=== PATIENT | female | born 1950 | race Caucasian/White ===

== ENCOUNTER 2016-11-04 12:02 | Emergency (ER) | payer OTHER ==
[2016-11-04 12:12] VITALS: TEMP 98.6
--- NOTE | 2016-11-04 13:14 | EDPHY ---
H & P Time Seen by Provider: 11/04/16 13:12 HPI/ROS: CHIEF COMPLAINT: Dyspnea, cough HISTORY OF PRESENT ILLNESS: This patient is a 65 year old female with history of asthma who presents to the Emergency Department for complaints of persistent cough and associated shortness of breath onset 2.5 weeks prior to arrival. She began a course of Levaquin three weeks ago for sinusitis as prescribed by her ENT specialist. She developed a cough 2 weeks ago, which she reports is a typical symptom with her chronic sinusitis. She started taking prednisone approximately one week prior to arrival as prescribed by her CREDIT ADMINISTRATION SPECIALIST. She reports that her dyspnea and cough have only worsened since that time. She had a chest x -ray five days ago suggestive of left lower lobe pneumonia. She started using nebulizer treatments four times daily at that time. Two days prior to arrival, she developed generalized urticaria. She has been taking Benadryl every four hours without improvement to her hives. Today, she reports worsening pruritic urticaria with associated lip swelling, increased dyspnea, and persistent cough. She denies fever or chills or any additional complaints. REVIEW OF SYSTEMS: Constitutional: No fever, no chills Eyes: No visual changes ENT: No sore throat Respiratory: As in HPI Cardiac: No chest pain Gastrointestinal: No nausea, no vomiting, no abdominal pain Genitourinary: No hematuria, no dysuria Musculoskeletal: No leg pain or swelling Skin: +generalized hives Neurological: No headache, no numbness, no weakness Psychiatric: No depression Past Medical/Surgical History: 1. Chronic sinusitis 2. Asthma Social History: Visiting from [place], staying [place] [facility]. Smoking Status: Never smoked Physical Exam: General Appearance: Alert, no distress Eyes: Pupils equal and round, no conjunctival pallor or injection ENT, Mouth: Mucous membranes moist, no visible lip swelling, no oral swelling Neck: Normal inspection Respiratory: Expiratory wheezing Cardiovascular: Regular rate and rhythm Gastrointestinal: Abdomen is soft and non- tender Neurological: A&O, nonfocal, normal gait Skin: Warm and dry, diffuse hives Extremities: Nontender, no pedal edema Psychiatric: Mood and affect normal Constitutional: Initial Vital Signs Temperature (C) 37.0 C 11/04/16 12:08 Heart Rate 108 H 11/04/16 12:08 Respiratory Rate 18 11/04/16 12:08 Blood Pressure 124/77 H 11/04/16 12:08 O2 Sat (%) 89 L 11/04/16 12:08 O2 Delivery Mode Room Air Allergies/Adverse Reactions: levofloxacin [From Levaquin] Allergy (Verified 11/04/16 12:08) Sulfa (Sulfonamide Antibiotics) Allergy (Verified 11/04/16 12:08) Home Medications: Medication Instructions Recorded Albuterol 11/04/16 Prednisolone 11/04/16 predniSONE 1 tab PO DAILY #15 tab 11/04/16 Medical Decision Making - Diagnostics EKG Interpretation: EKG interpreted by me: NSR, rate 97, Diffuse T wave flattening. Impression: borderline EKG Imaging Results: CXR: RLL infiltrate Imaging: I viewed and interpreted images myself ED Course/Re-evaluation: This 65-year-old female presents with persistent cough and shortness of breath presenting 2.5 weeks prior to arrival just after she began a course of Levaquin for sinusitis. She was diagnosed via chest x-ray with left lower lobe pneumonia five days prior to arrival. Today, she presents with diffuse pruritic urticaria. She has history of asthma and reports persistent dyspnea. She has expiratory wheezing on exam. O2 sat was 89% on RA at triage; she had finger nail senegalese on at that time. Since senegalese was removed, O2 sat has been 93% on RA. Will proceed with labs and chest x-ray. IV established. 125mg IV prednisolone administered. 3ml IH DuoNeb administered. Chest x-ray reviewed and shows left lower lobe pneumonia. Pt states rash much improved. 1428: On reevaluation, the patient is feeling much better. Her lungs are now clear to auscultation. O2 sat remains greater than 90% on RA with ambulation and pt is not SOB. She is eager to go home. I discussed with her my recommendation that she begin the course of Zithromax that was prescribed by her CREDIT ADMINISTRATION SPECIALIST (she has these pills at home). Will take anti-histamines OTC and use her home neb tid. She will also be given a new script for prednisone and instructions to use her nebulizer treatment four times daily. She understands these instructions. She will be discharged home in good condition with customary return precautions. Differential Diagnosis: includes though not limited to hypoxia, status asthmaticus, CHF, PE - Data Points Laboratory Results: Laboratory Results 11/04/16 13:23 11/04/16 13:23 Medications Given: Discontinued Medications Albuterol/Ipratropium (Duoneb) 3 ml IH EDNOW ONE Stop: 11/04/16 13:28 Last Admin: 11/04/16 13:56 Dose: 3 ml Methylprednisolone Sodium Succinate (Solu-Medrol) 125 mg IVP EDNOW ONE Stop: 11/04/16 13:28 Last Admin: 11/04/16 13:57 Dose: 125 mg Departure - Departure Disposition: Home, Routine, Self-Care Clinical Impression: Pneumonia Qualifiers: Pneumonia type: due to unspecified organism Laterality: left Lung location: lower lobe of lung Qualified Code(s): J18.1 - Lobar pneumonia, unspecified organism Condition: Good Instructions: Pneumonia (ED) Additional Instructions: 1. Take prednisone as prescribed for your shortness of breath and cough. 2. Take the full course of Zithromax as prescribed to treat your pneumonia. You are allergic to Levaquin. 3. Continue to use your nebulizer treatment at home, four times daily. Take Claritin in the morning and Benadryl at night while rash persists. 4. Follow-up with your primary care provider in 3-5 days for reevaluation. 5. Return to the Emergency Department with worsening shortness of breath, chest pain, high fever, or additional serious concerns. Referrals: TIMOTEO RALPH [Other] - As per Instructions Prescriptions: predniSONE 1 tab PO DAILY #15 tab Report Scribed for: Elizabeth Javier Report Scribed by: Radha Rosenbaum Date of Report: 11/04/16 Time of Report: 13:13
[2016-11-04] MEDS ORDERED: methylPREDNISolone SOD SUCC 125 MG/2 ML VIAL IVP ONE (13:27)
[2016-11-04] MEDS ORDERED: IPRATROPIUM/ALBUTEROL 3 ML DEYVIAL IH ONE (13:27)
[2016-11-04 13:31] LABS: % IMMATURE GRANULYOCYTES 0.3 % (0.0-1.1); ABSOLUTE IMMATURE GRANULOCYTES 0.03 10^3/uL (0.00-0.10); ADD DIFF? NO; ADD MORPH? NO; ADD SCAN? NO; ATYPICAL LYMPHOCYTE FLAG 20 (0-99); FRAGMENT RBC FLAG 0 (0-99); HEMATOCRIT 41.7 % (38.0-47.0); HEMOGLOBIN 14.2 g/dL (12.6-16.3); LEFT SHIFT FLG 0 (0-99); LIPEMIA HEMOLYSIS FLAG 90 (0-99); MEAN CELL HEMOGLOBIN 29.1 pg (27.9-34.1); MEAN CELL HEMOGLOBIN CONCENTR. 34.1 g/dL (32.4-36.7); MEAN CELL VOLUME 85.5 fL (81.5-99.8); PLATELET CLUMPS FLAG 0 (0-99); PLATELET COUNT 257 10^3/uL (150-400); RED BLOOD CELL COUNT 4.88 10^6/uL (4.18-5.33); RED CELL DISTRIBUTION WIDTH 13.9 % (11.5-15.2)
--- NOTE | 2016-11-04 13:33 | CPEKG ---
Heart Rate: 97 RR Interval: 619 P-R Interval: 128 QRSD Interval: 76 QT Interval: 336 QTC Interval: 427 P Caballo: 13 QRS Caballo: 25 T Wave Cab[place]: 21 EKG Severity - BORDERLINE ECG - EKG Impression: SINUS RHYTHM EKG Impression: diffuse T wave flattening Electronically Signed By: Elizabeth Javier 04-Nov-2016 21:14:12
[2016-11-04 13:42] LABS: ANION GAP 10 mEq/L (8-16); CALCIUM 9.3 mg/dL (8.5-10.4); CARBON DIOXIDE 26 mEq/l (22-31); CHLORIDE 102 mEq/L (97-110); CREATININE 0.8 mg/dL (0.6-1.0); GLOMERULAR FILTRATION RATE > 60; GLUCOSE 119 mg/dL (70-100); POTASSIUM 3.7 mEq/L (3.5-5.2); SODIUM 138 mEq/L (134-144)
[2016-11-04 13:55] LABS: TROPONIN I < 0.012 ng/mL (0-0.034)
[2016-11-04 14:37] VITALS: BP 138/88; PULSE 94; RESP 20; O2SAT 93
== END 2016-11-04 14:40 | disposition home or self-care (01) ==
DX: J18.9 Pneumonia, unspecified organism (principal); J45.909 Unspecified asthma, uncomplicated
CPT/HCPCS: 96374